=== PATIENT | male | born 1985 | race Caucasian/White ===

== ENCOUNTER 2017-04-16 19:08 | Emergency (ER) | payer MEDICAID ==
[~2017-04-16] VITALS: Ht 190.5 cm; Wt 68.1 kg
[2017-04-16] MEDS ORDERED: METH-356 PO (19:43)
[2017-04-16] MEDS ORDERED: IBUPROFEN 200 MG TABLET ONE (20:08)
[2017-04-16] MEDS ORDERED: IBUPROFEN 200 MG TABLET PO ONE (20:30)
[2017-04-16] MEDS ORDERED: PLEASE ENTER ALLERGIES MC SCH (20:30)
[2017-04-16] MEDS ORDERED: LIDOCAINE 1%, 10ML SQ ONE (21:00)
[2017-04-16 23:25] VITALS: BP 101/65
== END 2017-04-16 23:52 | disposition home or self-care (01) ==
LOC: ED 20:45
DX: M25.562 Pain in left knee (principal); M25.462 Effusion, left knee
CPT/HCPCS: 20610; 73564; 82945; 83615; 84157; 84560; 85810; 87070; 87205; 89050; 89060; 99285; J3490

== ENCOUNTER 2017-05-07 00:57 | Emergency (ER) | payer MEDICAID ==
[~2017-05-07] VITALS: Ht 190.5 cm; Wt 69.3 kg
[~2017-05-07 00:57] MED LIST: METH-356 PO
[2017-05-07 01:37] VITALS: BP 116/85
== END 2017-05-07 01:38 | disposition home or self-care (01) ==
LOC: ED 01:32
DX: R10.9 Unspecified abdominal pain (principal)
CPT/HCPCS: 99281